=== PATIENT | female | born 1970 ===

== ENCOUNTER → 2019-01-21 | Outpatient (REF) | payer BC ==
[2019-01-21 17:55] LABS: PLATELET COUNT, AUTOMATED 244 K/uL (150-450)
== END ==
LOC: ZZSTITCHES 17:40
PROVIDERS: ATTEND Physician Assistant
DX: R53.81 Other malaise (principal); R19.7 Diarrhea, unspecified; R23.2 Flushing; M79.602 Pain in left arm
CPT/HCPCS: 82040; 82247; 82310; 82374; 82435; 82565; 82947; 84075; 84132; 84155; 84295; 84443; 84450; 84460; 84484; 84520; 85025